=== PATIENT | male | born 1980 | race American Indian/Alaskan Native ===

== ENCOUNTER 2017-06-07 12:08 | Emergency (ER) | payer OTHER ==
[2017-06-07 13:09] VITALS: BP 118/76
[2017-06-07] MEDS ORDERED: XYLOCAINE 2%/ EPI 1:200,000 INFILTRATI ONE (15:18)
[2017-06-07] MEDS ORDERED: MOTRIN PO ONE (15:18)
--- NOTE | 2017-06-07 22:44 | Emergency Department Report ---
Entered by FIONA MOJICA, acting as scribe for CATHLEEN MORALES NP. - General Chief complaint: Skin/Abscess/Foreign Body Stated complaint: SPIDER BITE Time Seen by Provider: 06/07/17 14:41 Source: patient Mode of arrival: Ambulatory Limitations: No Limitations - History of Present Illness Initial comments: This is a 36 year old male, nontoxic, well nourished in appearance, no acute signs of distress presents with possible insect bite from 2 days ago. 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 Patient reports he went to urgent care for these yesterday and they told him that it needs incision and driange but they do not perform in the urgent care and was prescribed with Bactrim for 10 days. Patient reports, TTP, erythema, and mild pus/ drainage, but denies fever, chills, cough, stiff neck, chest pain , numbness, tingling, or SOB. NKDA. VELARDE complaint: insect bite/sting (unknown insect) -: days(s) (2) Tetanus Up to Date: unsure Location: back Severity: moderate Severity scale (0 -10): 4 Quality: constant Consistency: constant Improves with: none Worsens with: palpation Context: witnessed insect bite Associated symptoms: denies other symptoms Treatments Prior to Arrival: antibiotic (Bactrim) - Related Data Previous Rx's Medication Instructions Recorded Last Taken Type Ibuprofen [Motrin 600 MG tab] 600 mg PO Q8H PRN #30 tablet 06/07/17 Unknown Rx Allergies Allergy/AdvReac Type Severity Reaction Status Date / Time No Known Allergies Allergy Verified 06/07/17 13:03 Abscess Boil HPI - HPI Chief Complaint: Skin/Abscess/Foreign Body Stated Complaint: SPIDER BITE Time Seen by Provider: 06/07/17 14:41 Duration: 2 Days Location: Back Severity: Moderate History: Yes Purulent Drainage, Yes Insect Bite, No Fever, No Pain, No Numbness , No Foreign Body, No Previous History Home Medications: Previous Rx's Medication Instructions Recorded Last Taken Type Ibuprofen [Motrin 600 MG tab] 600 mg PO Q8H PRN #30 tablet 06/07/17 Unknown Rx Allergies/Adverse Reactions: Allergies Allergy/AdvReac Type Severity Reaction Status Date / Time No Known Allergies Allergy Verified 06/07/17 13:03 ED Review of Systems Comment: All other systems reviewed and negative Constitutional: denies: chills, fever Eyes: denies: eye pain, eye discharge, vision change ENT: denies: ear pain, throat pain Respiratory: denies: cough, shortness of breath, wheezing Cardiovascular: denies: chest pain, palpitations Endocrine: no symptoms reported Gastrointestinal: denies: abdominal pain, nausea, vomiting, diarrhea Genitourinary: denies: urgency, dysuria Musculoskeletal: denies: back pain, joint swelling, arthralgia Skin: other (Abscess). denies: rash, lesions Neurological: denies: headache, weakness, paresthesias Psychiatric: denies: anxiety, depression Hematological/Lymphatic: denies: easy bleeding, easy bruising ED Past Medical Hx - Past Medical History Previous Medical History?: Yes - Surgical History Past Surgical History?: Yes - Social History Smoking Status: Current Every Day Smoker Substance Use Type: None - Medications Home Medications: Home Medications Medication Instructions Recorded Confirmed Last Taken Type Ibuprofen [Motrin 600 MG tab] 600 mg PO Q8H PRN #30 tablet 06/07/17 Unknown Rx ED Physical Exam - General Limitations: No Limitations General appearance: alert, in no apparent distress - Head Head exam: Present: atraumatic, normocephalic, normal inspection - Eye Eye exam: Present: normal appearance, PERRL, EOMI. Absent: scleral icterus, conjunctival injection, nystagmus, periorbital swelling, periorbital tenderness - ENT ENT exam: Present: normal exam, normal orophraynx, mucous membranes moist, TM's normal bilaterally, normal external ear exam - Neck Neck exam: Present: normal inspection, full ROM. Absent: tenderness, meningismus, lymphadenopathy, thyromegaly - Respiratory Respiratory exam: Present: normal lung sounds bilaterally. Absent: respiratory distress, wheezes, rales, rhonchi, stridor, chest wall tenderness, accessory muscle use, decreased breath sounds, prolonged expiratory - Cardiovascular Cardiovascular Exam: Present: regular rate, normal rhythm, normal heart sounds. Absent: bradycardia, tachycardia, irregular rhythm, systolic murmur, diastolic murmur, rubs, gallop - GI/Abdominal GI/Abdominal exam: Present: soft, normal bowel sounds. Absent: distended, tenderness, guarding, rebound, rigid, diminished bowel sounds - Rectal Rectal exam: Present: deferred - Extremities Exam Extremities exam: Present: normal inspection, full ROM, normal capillary refill. Absent: tenderness, pedal edema, joint swelling - Back Exam Back exam: Present: normal inspection, full ROM, other (3 cm erythema with swelling. Positive induration and fluctance. No pus or driange noted. Tender to touch. ). Absent: tenderness, CVA tenderness (R), CVA tenderness (L), muscle spasm, paraspinal tenderness, vertebral tenderness, rash noted - Neurological Exam Neurological exam: Present: alert, oriented X3, CN II-XII intact, normal gait, reflexes normal - Psychiatric Psychiatric exam: Present: normal affect, normal mood - Skin Skin exam: Present: warm, dry, intact, normal color. Absent: rash ED Course Vital Signs 06/07/17 06/07/17 13:04 15:28 Temperature 98.1 F Pulse Rate 71 Respiratory 20 16 Rate Blood Pressure 118/76 O2 Sat by Pulse 100 Oximetry - Reevaluation(s) Reevaluation #1: 06/07/17 16:17 Patient is speaking in full sentences with no signs of distress noted. - I & D Back Type of Procedure: Complex Site: right-sided lateral back Blade Size: 11 I & D Procedure: betadine prep, sterile drapes applied, sterile dressing applied Progress: Under sterile field, I used Betadine to cleanse the area. I then used 2% lidocaine with epi 1-200,000 with 25-gauge 5/8 needle to inject area for anesthetic purposes. Total volume injected 3 mL. I then used an 11 blade to make a 1 cm incision. About 2 mL's of purulent drainage has been noted. I then used a hemostat to break the abscess formation. I then used sterile 0.9% normal saline flush to flush the wound with total volume of 40 mL used. I then put a 1/4 iodoform packing to the incision. A sterile 4 x 4 with tape has been applied as dressing. Bleeding is under control. Patient tolerated the procedure well with no signs of distress noted. ED Medical Decision Making - Medical Decision Making ED course; this is a 28-year-old male that presents with abscess 1- patient was examined myself. I&D performed and patient felt well with no signs of distress. Patient is taking currently Bactrim that was prescribed to him in urgent care and there is no need for change of antibiotics. I notified the patient to finish full course of antibiotics and was prescribed to him. Patient was also notified to follow up with a primary care doctor in 3-5 days or symptoms such as increased swelling, fever, chills, chest pain, short of breath, or symptoms worsening return to the ER as soon as possible. Patient also notified to return in 2 days for packing removal and reassessment of the abscess. ED Disposition Clinical Impression: Abscess, Encounter for incision and drainage procedure Disposition: TO HOME OR SELFCARE Is pt being admited?: No Does the pt Need Aspirin: No Condition: Stable Instructions: Abscess Incision and Drainage (ED), Abscess (ED), Ibuprofen (By mouth) Additional Instructions: follow up with a primary care doctor in 3-5 days or symptoms such as increased swelling, fever, chills, chest pain, short of breath, or symptoms worsening return to the ER as soon as possible. Return in 2 days for packing removal and reassessment of the abscess Continue taking Bactrim as prescribed to the urgent care. Prescriptions: Ibuprofen [Motrin 600 MG tab] 600 mg PO Q8H PRN #30 tablet PRN Reason: Pain Referrals: PRIMARY CAREMD [Primary Care Provider] - 3-5 Days KATHY WYNN MD [Staff Physician] - 3-5 Days [facility] [Outside] - 3-5 Days [facility] [Outside] - 3-5 Days Forms: Work/School Release Form(ED) This documentation as recorded by the GALINA linn PEARL,accurately reflects the service I personally performed and the decisions made by me,CATHLEEN MORALES, CHIEF PROGRAM OFFICER.
== END 2017-06-07 16:40 | disposition home or self-care (01) ==
LOC: ED 12:08
DX: L02.212 Cutaneous abscess of back [any part, except buttock and flank] (principal); F17.200 Nicotine dependence, unspecified, uncomplicated